=== PATIENT | male | born 1990 | race Caucasian/White ===

== ENCOUNTER 2024-05-26 11:31 | Emergency (ER) | payer BC, SELFPAY ==
--- NOTE | ~2024-05-26 | XR_ITS ---
XR wrist RT min 3V Ordering provider: Sarah Núñez PA-C History: . injury . Comparison: None. FINDINGS: BONES: No acute fracture or dislocation. No definite scaphoid fracture. JOINT SPACES: Normal. SOFT TISSUES: Soft tissue swelling seen medially in the area of the fifth metacarpal bone. IMPRESSION: No acute osseous abnormality right wrist. Reviewed, dictated and finalized at location A.
[2024-05-26 11:38] VITALS: BP 156/104; PULSE 87; RESP 18; TEMP 36.3; O2SAT 100
[2024-05-26 14:36] VITALS: BP 141/96; PULSE 94; RESP 16; O2SAT 98
--- NOTE | 2024-05-26 16:05 | ED.UPPEXIN ---
HPI - Extremity Injury (Upper) General Chief Complaint: Extremity Injury, Upper Stated Complaint: right wrist injury Time Seen by Provider: 05/26/24 16:04 History of Present Illness HPI narrative: 33-year-old male presents to emergency department for right wrist pain. Patient states 3 days ago he was standing on a crate when he lost his balance and fell off. He states he caught himself on an outstretched hand and injured his right wrist. He did not hit his head or lose consciousness. He is not anticoagulated. He denies other injuries acquired. States he has been taking ibuprofen with some improvement. Related Data Allergies Allergy/AdvReac Type Severity Reaction Status Date / Time No Known Allergies Allergy Mild Verified 05/26/24 11:32 Review of Systems Review of Systems: All systems reviewed & are unremarkable except as noted in HPI and below PMFSH Family History Family History Mother Hypertension Exam Narrative: GENERAL: Well-appearing, well-nourished, and in no acute distress. HEAD: Normocephalic, atraumatic. ENT: Nares clear, no rhinorrhea or epistaxis. Mucous membranes moist. NECK: No midline cervical spinous tenderness, step-offs or deformities BACK: No midline thoracolumbar spinous tenderness, step-offs or deformities CHEST: Clear to auscultation. No respiratory distress. HEART: Regular rate and rhythm. No murmur heard. Normal peripheral pulses. EXTREMITIES:RUE: Tenderness to the distal ulna with overlying edema. No obvious deformity. No tenderness to the radius, carpal bones, metacarpals, digits, elbow remainder of extremity. Limited range of motion secondary to pain. Cap refill less than 2. Sensation intact. Radial pulse 2 +. No snuffbox tenderness. Compartments soft. SKIN: Warm, dry, no rash. NEURO: No focal deficits. Alert and oriented x3 Course Vital Signs Vital signs: Vital Signs Temperature 97.3 F L 05/26/24 11:38 Pulse Rate 87 05/26/24 11:38 Respiratory Rate 18 05/26/24 11:38 Blood Pressure 156/104 H 05/26/24 11:38 Pulse Oximetry 100 05/26/24 11:38 Oxygen Delivery Room Air 05/26/24 11:38 Temperature 97.3 F L 05/26/24 11:38 Pulse Rate 94 05/26/24 14:36 Respiratory Rate 16 05/26/24 14:36 Blood Pressure 141/96 H 05/26/24 14:36 Pulse Oximetry 98 05/26/24 14:36 Oxygen Delivery Room Air 05/26/24 11:38 MDM - Extremity Injury (Upper) MDM Narrative Medical decision making narrative: 33-year-old male presents to the emergency department for right wrist pain after a FOOSH injury from mechanical fall 3 days ago. Vitals with hypertension, otherwise unremarkable. Exam is significant for tenderness to the distal ulna with overlying edema, no obvious deformity. Remainder of exam is unremarkable. He is neurovascularly intact. No snuffbox tenderness. X-ray the wrist shows no acute osseous abnormality, soft tissue swelling. Imaging and exam discussed with the patient. He was placed in a David wrap and provided orthopedic referral. Encouraged RICE, tylenol and ibuprofen for pain. Strict ED return precautions discussed. He is agreeable with the plan verbalized understanding. Discharged in stable condition. Discharge Plan Discharge Clinical Impression: Sprain and strain of wrist Patient Disposition: Home, Self-Care Condition: Stable Instructions: Antibiotic Form, Wrist Injury (ED), Wrist Sprain (ED) Additional Instructions: Your evaluated in the emergency department for wrist pain after an injury. Her x-ray shows swelling to her soft tissues but does not show any broken bones. Please rest, ice, elevate and keep it compressed and follow-up closely with the orthopedist or referred you to. Return to the emergency department if he develops significantly worsening pain, a white or numb hand, or other concerning symptoms. You can take Tylenol and ibuprofen as needed for pain. Follow-up/Ref
== END 2024-05-26 16:54 | disposition home or self-care (01) ==
LOC: ANHED 16:43
PROVIDERS: Emergency Provider Physician Assistant
DX: S63.501A Unspecified sprain of right wrist, initial encounter (principal); S66.911A Strain of unspecified muscle, fascia and tendon at wrist and hand level, right hand, initial encounter; W17.89XA Other fall from one level to another, initial encounter
CPT/HCPCS: 73110; 99283